=== PATIENT | male | born 1965 | race Caucasian/White ===

== ENCOUNTER → 2017-01-30 | Outpatient (CLI) | payer OTHER ==
--- NOTE | 2017-01-30 13:41 | KCIC ---
EXAM: Lumbar spine, 3 views. HISTORY: Pain. COMPARISON: None. FINDINGS: Frontal, lateral and coned sacral views of the lumbar spine are obtained. There is a transitional lumbosacral segment, considered a partially lumbarized S1 segment for this dictation. There is slight retrolisthesis of L5 on S1. There is degenerative endplate remodeling with disc space narrowing, osteophytosis and facet arthropathy at this level. There is also mild endplate remodeling at the remainder of the lumbar levels. There are faint densities overlying both renal shadows, possibly due to overlying bowel or nephrolithiasis per IMPRESSION: 1. Degenerative change predominantly at L5-S1. 2. No acute osseous finding. Electronically signed by: Nichelle Otto MD (01/30/2017 1:38 PM) [place] [id number]
== END | disposition home or self-care (01) ==
LOC: KCIC 13:02
PROVIDERS: ATTEND Internal Medicine
DX: M47.896 Other spondylosis, lumbar region (principal)
CPT/HCPCS: 72100